=== PATIENT | female | born 1955 | race Caucasian/White ===

== ENCOUNTER → 2016-12-03 | Outpatient (CLI) | payer OTHER, BC ==
[~2016-12-03] MED LIST: CHOL100010 PO; EFF/375 PO; MULT-506 PO; POLYSOL4 OP; PRLSR20 PO; SOLI10TA2 PO
--- NOTE | 2016-12-03 16:34 | MAMMOGRAPHY REPORT ---
BILATERAL DIGITAL SCREENING MAMMOGRAM TOMOSYNTHESIS WITH CAD: 12/03/2016 CLINICAL HISTORY: Routine screening. Patient has no complaints. TECHNIQUE: Breast tomosynthesis in addition to standard 2D mammography was performed. Current study was also evaluated with a Computer Aided Detection (CAD) system. COMPARISON: Comparison is made to exams dated: 12/02/2015 mammogram, 11/29/2013 mammogram, 11/30/2014 mammogram, 11/28/2012 mammogram, 11/27/2011 mammogram, and 11/26/2010 mammogram - [facility]. BREAST COMPOSITION: The tissue of both breasts is almost entirely fatty. FINDINGS: No suspicious masses, calcifications, or areas of architectural distortion are noted in e ither breast. There has been no significant interval change compared to prior exams. Scattered bilat eral benign-appearing calcifications are not significantly changed. IMPRESSION: ACR BI-RADS CATEGORY 2: BENIGN There is no mammographic evidence of malignancy. A 1 year screening mammogram is recommended. The p atient will receive written notification of the results. Approximately 10% of breast cancers are not detected with mammography. A negative mammographic repor t should not delay biopsy if a clinically suggestive mass is present. Connie Dominguez M.D. ah/:12/03/2016 15:52:24 Bench Worker Apprentice: Narcisa VALDEZ(Marcos)(M), [facility] letter sent: Normal 1/2 BI-RADS Code: ACR BI-RADS Category 2: Benign
== END | disposition home or self-care (01) ==
LOC: C.MAMM 11:10
PROVIDERS: ATTEND Internal Medicine
DX: Z12.31 Encounter for screening mammogram for malignant neoplasm of breast (principal)

== ENCOUNTER → 2017-04-12 | Day surgery (SDC) | payer BC, OTHER ==
[2017-04-07 11:09] VITALS: BMI 47.0
[~2017-04-12] VITALS: Ht 162.6 cm; Wt 125.0 kg
[~2017-04-12] MED LIST changes: +LIDOCAINE HCL 2% 2 ML VIAL (20MG/ML) ONE; +MIDAZOLAM HCL 1 MG/ML 2ML VIAL ONE; +PROPOFOL IV EMULSION 10 MG/ML 20 ML VIAL IV ONE; +SODIUM CHLORIDE 0.9% 500ML 500 ML IV ONE
[2017-04-12 08:07] VITALS: Ht 162.6 cm; Wt 125.0 kg
[2017-04-12 08:16] VITALS: TEMP 36.8
--- NOTE | 2017-04-12 08:51 | Endo History and Physical ---
History & Physical Date of Service: Apr 12, 2017. Chief Complaint: screening, Referring Physician: Dr. Mandujano History of Present Illness screening Past Surgical History Hx Cardiac Surgery: No Hx Internal Defibrillator: No Hx Pacemaker: No Hx Abdominal Surgery: Yes (TUBAL LIGATION) Hx of Implantable Prosthesis: No Hx Post-Op Nausea and Vomiting: Yes Hx Cancer Surgery: No Hx Thoracic Surgery: No Hx Orthopedic: Yes (RIGHT SHOULDER ARTHROSCOPY, LEFT KNEE ARTHROSCOPY, RIGHT AND LEFT FOOT SURG) Hx Urinary Tract Surgery: No Family History None Social History Smoking Status: Never Smoker Hx Substance Use: No Hx Alcohol Use: No Allergies Coded Allergies: Penicillins (Verified Allergy, Mild, RASH, 04/12/17) Current Medications Reported Home Medications Medications Dose Route/Sig Max Daily Dose Days Date Category Effexor (Venlafaxine Hcl) 37.5 Mg Tab 37.5 Mg PO HS 04/07/17 Reported Vesicare (Solifenacin) 10 Mg Tab 10 Mg PO HS 04/07/17 Reported Systane (Polyethylene Glycol-Propylene) 1 Ivy Ivy 1 Drops OP QID 04/07/17 Reported Prilosec (Omeprazole) 20 Mg Capcr 20 Mg PO HS 04/07/17 Reported Vitamin D (Cholecalciferol) 1,000 Unit Tab 1 Tab PO HS 04/07/17 Reported Multivitamin (Multivitamins) Tab 1 Tab PO HS 04/07/17 Reported Vital Signs Weight (Kilograms): 125.00 Height (Feet): 5 Height (Inches): 4 Date Time Temp Pulse Resp B/P (MAP) Pulse Ox O2 Delivery O2 Flow Rate FiO2 04/12/17 08:16 36.8 78 20 140/77 (98) 94 Room Air Physical Exam General Appearance: WD/WN, no apparent distress Assessment and Plan colonoscopy today
--- NOTE | 2017-04-12 09:20 | GI REPORT ---
Procedure Date: 04/12/2017 8:54 AM Procedure: Colonoscopy Indications: Screening for colorectal malignant neoplasm Medicines: Propofol per Anesthesia Complications: No immediate complications. Estimated blood loss: Minimal. Estimated Blood Loss: Estimated blood loss: none. Procedure: Pre-Anesthesia Assessment: - Prior to the procedure, a History and Physical was performed, and patient medications, allergies and sensitivities were reviewed. The patient's tolerance of previous anesthesia was reviewed. - The risks and benefits of the procedure and the sedation options and risks were discussed with the patient. All questions were answered and informed consent was obtained. - Patient identification and proposed procedure were verified prior to the procedure by the physician and the nurse. The procedure was verified in the pre-procedure area in the procedure room. - Mental Status Examination: alert and oriented. Airway Examination: normal oropharyngeal airway and neck mobility. Respiratory Examination: clear to auscultation. CV Examination: normal. Abdominal Examination: bowel sounds present, abdomen soft and non-tender, no masses or organomegaly noted. - ASA Grade Assessment: III - A patient with severe systemic disease. After I obtained informed consent, the scope was passed under direct vision. Throughout the procedure, the patient's blood pressure, pulse, and oxygen saturations were monitored continuously. The scope was introduced through the anus and advanced to the terminal ileum. The colonoscopy was performed without difficulty. The patient tolerated the procedure well. The quality of the bowel preparation was good. Findings: The perianal and digital rectal examinations were normal. Pertinent negatives include normal sphincter tone and no palpable rectal lesions. The terminal ileum appeared normal. Three sessile polyps were found in the ascending colon. The polyps were 2 to 6 mm in size. These polyps were removed with a cold snare. Resection and retrieval were complete. Verification of patient identification for the specimen was done by the physician and nurse using the patient's name and date. Estimated blood loss was minimal. The exam was otherwise without abnormality. The retroflexed view of the distal rectum and anal verge was normal and showed no anal or rectal abnormalities. Impression: - The examined portion of the ileum was normal. - Three 2 to 6 mm polyps in the ascending colon, removed with a cold snare. Resected and retrieved. - The examination was otherwise normal. - The distal rectum and anal verge are normal on retroflexion view. Recommendation: - Await pathology results. - Repeat colonoscopy in 5 years for surveillance. - Return to referring physician as previously scheduled. - Discharge patient to home. Emperatriz Vanessa D.O. Emperatriz Vanessa, 04/12/2017 9:18:48 AM This report has been signed electronically. Note Initiated On: 04/12/2017 8:54 AM I attest to the content of the Intraoperative Record and orders documented therein, exceptions below
--- NOTE | 2017-04-12 09:26 | Anesthesiology Progress Note ---
Anesthesia Post Op Note Date & Time Apr 12, 2017 at 09:26 Vital Signs Pain Intensity: 0 Vital Signs Past 12 Hours Date Time Temp Pulse Resp B/P (MAP) Pulse Ox O2 Delivery O2 Flow Rate FiO2 04/12/17 08:16 36.8 78 20 140/77 (98) 94 Room Air Notes Mental Status: alert / awake / arousable, participated in evaluation Pt Amnestic to Procedure: Yes Nausea / Vomiting: adequately controlled Pain: adequately controlled Airway Patency, RR, SpO2: stable & adequate BP & HR: stable & adequate Hydration State: stable & adequate Anesthetic Complications: no major complications apparent
--- NOTE | 2017-04-12 09:29 | Discharge Instructions ---
Endoscopy Patient Instructions Date / Procedure(s) Performed Apr 12, 2017. Colonoscopy Allergy Information Coded Allergies: Penicillins (Verified Allergy, Mild, RASH, 04/12/17) Discharge Date / Findings Apr 12, 2017. small polyps Medication Instructions Restart Stopped Medication(s): OK to resume home medications as above Provider Instructions Activity Restrictions - No exercising or heavy lifting for 24 hours. - Do not drink alcohol the day of the procedure. - Do not drive a car or operate machinery until the day after the procedure. - Do not make any important decisions or sign important papers in 24 hours after the procedure. Following Day: - Return to full activity which may include returning to work/school. Diet Start your diet with liquids and light foods (jello, soup, juice, toast). Then eat your usual diet if not nauseated. Treatment For Common After Affects For mild abdominal pain, bloating, or excessive gas: - Rest - Eat lightly - Lie on right side Follow-Up Information Follow-up with Dr. Mandujano as scheduled Anesthesia Information What You Should Know You have had a procedure that required some medicine to reduce anxiety and discomfort. This treatment is called moderate sedation. After receiving the treatment, you may be sleepy, but you will be able to breathe on your own. The effects of the treatment may last for several hours. Follow these instructions along with Activity/Diet recommendations noted above: * Do NOT do anything where dizziness or clumsiness would be dangerous. * Rest quietly at home today, then you can be up and about tomorrow. * Have a responsible person stay with you the rest of today. * You may have had an I.V. today. If so, you may take the dressing off later today. Recommendations Call your doctor if: * Trouble breathing * Continuous vomiting for more than 24 hours * Temperature above 101 degrees * Severe abdominal pain or bloating * Pain not relieved by pain medicine ordered * There is increased drainage or redness from any incision * A large amount of rectal bleeding greater than 2-3 tablespoons. (If you had a polyp/s removed or have hemorrhoids, a small amount of blood - from the rectum is to be expected.) * You have any unanswered questions or concerns. IN THE EVENT OF A SERIOUS EMERGENCY, GO TO THE NEAREST EMERGENCY ROOM Your discharge instructions were prepared by provider Emperatriz Vanessa. Patient Instructions Signature Page Paola Aranda Patient (or Guardian) Signature/Date: I have read and understand the instructions given to me by my caregivers. Caregiver/RN/Doctor Signature/Date: The above-named patient and/or guardian has received patient instructions on this date. + Original Patient Signature Page (only) stays with chart. Please make copy for patient.
[2017-04-12 09:45] VITALS: PULSE 69
[2017-04-12 09:57] VITALS: BP 127/63; O2SAT 97
== END | disposition home or self-care (01) ==
LOC: C.GI 07:31
PROVIDERS: ATTEND Internal Medicine
DX: Z12.11 Encounter for screening for malignant neoplasm of colon (principal); D12.2 Benign neoplasm of ascending colon; Z79.899 Other long term (current) drug therapy

== ENCOUNTER → 2017-12-06 | Outpatient (CLI) | payer OTHER, BC ==
[~2017-12-06] MED LIST changes: -LIDOCAINE HCL 2% 2 ML VIAL (20MG/ML) ONE; -MIDAZOLAM HCL 1 MG/ML 2ML VIAL ONE; -PROPOFOL IV EMULSION 10 MG/ML 20 ML VIAL IV ONE; -SODIUM CHLORIDE 0.9% 500ML 500 ML IV ONE
--- NOTE | 2017-12-07 15:16 | MAMMOGRAPHY REPORT ---
BILATERAL DIGITAL SCREENING MAMMOGRAM TOMOSYNTHESIS WITH CAD: 12/06/2017 CLINICAL HISTORY: Routine screening. Patient has no complaints. TECHNIQUE: Breast tomosynthesis in addition to standard 2D mammography was performed. Current study was also evaluated with a Computer Aided Detection (CAD) system. COMPARISON: Comparison is made to exams dated: 12/03/2016 mammogram, 12/02/2015 mammogram, 11/30/2014 ma mmogram, 11/29/2013 mammogram, 11/28/2012 mammogram, and 11/27/2011 mammogram - [facility]ter. BREAST COMPOSITION: The tissue of both breasts is almost entirely fatty. FINDINGS: No suspicious mass, architectural distortion or cluster of microcalcifications is seen. IMPRESSION: ACR BI-RADS CATEGORY 1: NEGATIVE There is no mammographic evidence of malignancy. A 1 year screening mammogram is recommended. The pa tient will receive written notification of the results. Approximately 10% of breast cancers are not detected with mammography. A negative mammographic report should not delay biopsy if a clinically suggestive mass is present. Caitie ruiz/bethany:12/06/2017 15:57:21 Product Marketing Coordinator: Liliana Viramontes RT(R)(M)(BD), [facility] letter sent: Normal 1/2 BI-RADS Code: ACR BI-RADS Category 1: Negative
== END | disposition home or self-care (01) ==
LOC: C.MAMM 11:24
PROVIDERS: ATTEND Internal Medicine
DX: Z12.31 Encounter for screening mammogram for malignant neoplasm of breast (principal)

== ENCOUNTER 2024-03-14 11:00 | Observation (INO) ==
--- NOTE | 2024-02-08 11:37 | PAT Medication Instructions ---
Medication Instructions Date of Service February 08, 2024 Home Medications aspirin 81 mg capsule 81 mg PO HS calcium carbonate 600 mg-vitamin D3 5 mcg (200 unit) tablet 1 tab PO HS multivitamin 1 tab PO HS omeprazole 20 mg tablet,delayed release 20 mg PO HS peg 400-propylene glycol (PF) 0.4 %-0.3 % eye drops in a dropperette (Systane (PF)) 2 drp ophthalmic (eye) QAM bupropion HCl 150 mg tablet,12 hr sustained-release 150 mg PO BID weight loss naltrexone 50 mg tablet 25 mg PO BID weight loss oxybutynin chloride 5 mg tablet,extended release 24 hr 5 mg PO HS venlafaxine 75 mg tablet,extended release 24 hr 75 mg PO HS ASK your prescriber and surgeon aspirin 81 mg capsule 81 mg PO HS STOP taking 24 hours before surgery bupropion HCl 150 mg tablet,12 hr sustained-release 150 mg PO BID weight loss naltrexone 50 mg tablet 25 mg PO BID weight loss Take morning of surgery With a small sip of water, OTHERWISE NOTHING TO EAT OR DRINK AFTER MIDNIGHT: peg 400-propylene glycol (PF) 0.4 %-0.3 % eye drops in a dropperette (Systane (PF)) 2 drp ophthalmic (eye) QAM Take evening before surgery calcium carbonate 600 mg-vitamin D3 5 mcg (200 unit) tablet 1 tab PO HS multivitamin 1 tab PO HS omeprazole 20 mg tablet,delayed release 20 mg PO HS oxybutynin chloride 5 mg tablet,extended release 24 hr 5 mg PO HS venlafaxine 75 mg tablet,extended release 24 hr 75 mg PO HS Other Notes If you have any questions please call us at [phone] or [phone] or [phone] or [phone]
--- NOTE | 2024-02-15 10:13 | Anesthesiology Consultation ---
Date of Service February 15, 2024 Assessment & Plan (1) Encounter for pre-operative examination: - Outpatient joint assessment: Patient is currently scheduled for inpatient pathway. If re-evaluated and patient/surgeon requests outpatient pathway, patient is acceptable candidate for outpatient joint program from anesthesia standpoint pending surgeon's office assessment of pt motivation/support/completion of same day joint program preop requirements. Chart Review Chart Review: Acceptable Risk for Surgery and Patient seen in Pre Admission Testing Teaching & Discussion Pre-Anesthesia Teaching/Discussion Notes: Instructed NPO after midnight before surgery, except medications with 15 cc of water. Medication instructions provided according to the PAT guidelines. History Surgery Operation Date: 03/14/24 07:00 Proposed Procedures p Left Total Knee Arthroplasty - Gama Keating MD Height/Weight Height: 5 ft 3.5 in Weight: 116.5 kg Allergies Allergy/AdvReac Type Severity Reaction Status Date / Time Penicillins Allergy Mild RASH Verified 02/08/24 10:09 Medications Home Medications Medication Instructions Recorded Confirmed Last Taken aspirin 81 mg capsule 81 mg PO HS 12/02/22 02/08/24 12/02/22 calcium carbonate 600 mg-vitamin 1 tab PO HS 12/02/22 02/08/24 12/08/22 21:00 D3 5 mcg (200 unit) tablet multivitamin 1 tab PO HS 12/02/22 02/08/24 12/08/22 21:00 omeprazole 20 mg tablet,delayed 20 mg PO HS 12/02/22 02/08/24 12/08/22 21:00 release peg 400-propylene glycol (PF) 0.4 2 drp ophthalmic (eye) QA 12/02/22 02/08/24 12/09/22 %-0.3 % eye drops in a dropperette (Systane (PF)) bupropion HCl 150 mg tablet,12 hr 150 mg PO BID weight loss 02/08/24 02/08/24 Unknown sustained-release naltrexone 50 mg tablet 25 mg PO BID weight loss 02/08/24 02/08/24 Unknown oxybutynin chloride 5 mg 5 mg PO HS 02/08/24 02/08/24 Unknown tablet,extended release 24 hr venlafaxine 75 mg tablet,extended 75 mg PO HS 02/08/24 02/08/24 Unknown release 24 hr Past Medical History Medical History (Updated 05/15/24 @ 09:33 by Shira Foster PA-C) Anxiety h/o panic attacks pre-menopause, resolved now postmenopausal per pt Bladder incontinence chronic, improving with weight loss per pt CKD (chronic kidney disease) stage 3, GFR 30-59 ml/min GERD (gastroesophageal reflux disease) controlled, stable per pt History of hoarseness 1 nodule on vocal cord, has been checked and monitored Hx of migraines only premenopause Nausea and vomiting after administration of anesthetic agent denies needing scop patch Patient denies h/o stroke, seizures, heart attack, heart failure, DM, HTN, blood clots/DVTs or blood transfusions. Exercise / Class Metabolic Activity III < 4 Walking/Shop/Light housework (denies chest discomfort or shortness of breath with usual activities) Past Surgical History Surgical History History of arthroscopic surgery of shoulder rt. Hx of arthroscopy of knee lt. Hx of bilateral cataract extraction Hx of colonoscopy Hx of detached retina repair rt. Hx of foot surgery bilat. Hx of LASIK Hx of tubal ligation Hx of wisdom tooth extraction Past Anesthesia History No Hx of Anesthesia Complications and No Family Hx of Anesthesia Complications History of PONV No Hx of Motion Sickness and History of PONV (denies needing scop patch) Social History Smoking Status: Never smoker Do You Dip or Chew Tobacco: No Hx Alcohol Use: No Hx Substance Use: No substance use type: does not use Review of Systems Snoring, denies witnessed apneas. Patient denies chest pain, shortness of breath, dyspnea on exertion, fever, chills, cough, wheezing, or palpitations. Physical Exam Vital Signs Vitals BP 124/81 P 74 TEMP 98.5 SP02 94% on RA RESP 18 Physical Patient resting comfortably in chair in no acute distress, alert and oriented, responding appropriately throughout visit Full cervical extension range of motion without pain TMD 3.5 finger breadths Mallampati Score 3 Dentition: intact, denies chipped or loose teeth, caps/crowns, implants or bridges Lungs: normal respiratory effort. Good air movement, clear throughout to auscultation, no adventitious breath sounds Cardiac: regular rate and rhythm, no murmurs noted Carotid arteries: negative bruit bilat Lab Results Anesthesia Preop Results Results Anesthesia Widget: WBC 7.80 K/ul (4.8-10.8) 02/15/24 Hgb 13.6 g/dl (12.0-16.0) 02/15/24 Hct 41.1 % (37.0-47.0) 02/15/24 Plt 268 K/uL (130-400) 02/15/24 Na 140 mmol/L (136-145) 02/15/24 K 3.7 mmol/L (3.5-5.1) 02/15/24 Cl 109 mmol/L (98-107) H 02/15/24 CO2 23 mmol/L (21-32) 02/15/24 BUN 19 mg/dl (6-23) 02/15/24 Creat 1.20 mg/dl (0.6-1.2) 02/15/24 Glucose Level 114 mg/dl (70-99(Fasting)) H 02/15/24 PT 10.9 Seconds (9.0-12.0) 02/15/24 PTT 27 Seconds (21-31) 02/15/24 INR 1.0 (0.9-1.1) 02/15/24 Blood Type B Positive 02/15/24 Antibody Screen NEGATIVE 02/15/24 Testing Electrocardiogram Date: 02/15/24 NSR, rate 72 bpm Chest X-Ray Date: 02/15/24 No acute process.
--- NOTE | 2024-03-11 09:44 | History & Physical Report ---
Date of Service March 11, 2024 Assessment & Plan (1) Degenerative arthritis of knee, bilateral: 68-year-old female with advanced bilateral knee DJD left side more symptomatic than the right. She is failed conservative measures. She is ready to proceed with knee replacement. Does have a history of a knee arthroscopy many years ago. Plan: Orgran taken to the operative left total knee replacement the risks Mente this procedure planed the patient clued but not limited to DVT PE infection neurological and vascular bleeding palm pain limb range of motion sepsis fairly her symptoms excetra. Patient understands and desires to proceed. Informed consents obtained. 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 She does have some underlying kidney disease so if to be careful any NSAIDs. Will use aspirin for DVT prophylaxis but hold on the Toradol. He is planned to be discharged to home and do therapy at [facility] without home health. History of Present Illness Chief Complaint: . Bilateral knee pain left side greater than the right. Primary Care Provider: Magdalene Mandujano MD . Patient is a 68-year-old female who presents for surgical treatment of her left knee. She had a long history of bilateral knee pain discomfort that is gotten worse over the past 20 years. She been through extensive conservative treatment initially provided by [facility] and then [facility]. Does have a history of a knee scope done by Dr. Travis about 20 years ago. He been to extensive treatment clued multiple injections even PRP injections which helped only temporarily. She has been trying to lose weight. 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 Allergies Allergy/AdvReac Type Severity Reaction Status Date / Time Penicillins Allergy Mild RASH Verified 02/08/24 10:09 Home Medications Medication Instructions Recorded Confirmed Type aspirin 81 mg capsule 81 mg PO HS 12/02/22 02/08/24 History calcium carbonate 600 mg-vitamin 1 tab PO HS 12/02/22 02/08/24 History D3 5 mcg (200 unit) tablet multivitamin 1 tab PO HS 12/02/22 02/08/24 History omeprazole 20 mg tablet,delayed 20 mg PO HS 12/02/22 02/08/24 History release peg 400-propylene glycol (PF) 0.4 2 drp ophthalmic (eye) QAM 12/02/22 02/08/24 History %-0.3 % eye drops in a dropperette (Systane (PF)) bupropion HCl 150 mg tablet,12 hr 150 mg PO BID weight loss 02/08/24 02/08/24 History sustained-release naltrexone 50 mg tablet 25 mg PO BID weight loss 02/08/24 02/08/24 History oxybutynin chloride 5 mg 5 mg PO HS 02/08/24 02/08/24 History tablet,extended release 24 hr venlafaxine 75 mg tablet,extended 75 mg PO HS 02/08/24 02/08/24 History release 24 hr Wheeled Walker #1 ea 03/07/24 Rx Past Med/Surg History Problem List Encounter for pre-operative examination Degenerative arthritis of knee, bilateral Medical History CKD (chronic kidney disease) stage 3, GFR 30-59 ml/min Nausea and vomiting after administration of anesthetic agent denies needing scop patch History of hoarseness 1 nodule on vocal cord, has been checked and monitored Hx of migraines only premenopause Bladder incontinence chronic, improving with weight loss per pt Anxiety h/o panic attacks pre-menopause, resolved now postmenopausal per pt GERD (gastroesophageal reflux disease) controlled, stable per pt Surgical History Hx of LASIK Hx of detached retina repair rt. Hx of arthroscopy of knee lt. History of arthroscopic surgery of shoulder rt. Hx of foot surgery bilat. Hx of tubal ligation Hx of colonoscopy Hx of bilateral cataract extraction Hx of wisdom tooth extraction Social History Smoking Status: Never smoker Second Hand Exposure: Yes (hx growing up and ex- smoked); Do You Dip or Chew Tobacco: No; Hx Alcohol Use: No Hx Substance Use: No Preferred Language: Malay Communication Ability: Effective Mechanics Supervisor Required: No Beliefs That Will Affect Care: None Current Living Situation: Spouse Feels Safe at Home: Yes Assistive Devices: None Review of Systems All systems reviewed & are unremarkable except as noted in HPI & below. Physical Exam . Physical examination reveals a pleasant middle-age female but looks in pretty good health. Examination of both knees shows patient walks a bit of a waddling gait. Got significant soft tissue envelope in both sides. Range of motion of both knees is pretty symmetric with near full extension to about 120 degrees of flexion. There is no obvious instability either side. No pain with hip motion. Constitutional WD/WN, vitals as above Neck trachea midline, no thyromegaly Respiratory normal respiratory effort, lungs clear to auscultation Cardiovascular RRR, no murmur, no edema Gastrointestinal (Abdomen) normal bowel sounds, soft, nontender, no hepatosplenomegaly Results & Data Results & Data Laboratory Results . Diagnostic Findings . X-rays of the knees reveal advanced bilateral knee DJD. She got complete loss of the medial joint space in both knees. Got osteophytes in all 3 compartments. PG Care Time/CCT Total # of Minutes Spent Total Time Spent with Patient: Total time spent is greater than 50% in coordination of care (as documented) at patient's floor/unit and/or counseling patient: Coding Level of Care Code None Diagnoses Degenerative arthritis of knee, bilateral M17.0
[~2024-03-14 11:00] MED LIST changes: +BUPIVACAINE 0.5 % 5 MG/1 ML PF 10ML VIAL ONE; -CHOL100010 PO; -EFF/375 PO; -MULT-506 PO; -POLYSOL4 OP; -PRLSR20 PO; +ROPIVACAINE 0.5% 5 MG/ML 30 ML VIAL ONE; -SOLI10TA2 PO
[2024-03-14] MEDS ORDERED: fentaNYL citrate PF 100 MCG/2 ML VIAL ONE (11:32)
[2024-03-14] MEDS ORDERED: LIDOCAINE 2% 2 ML VIAL/AMP(20MG/ML) INFIL ONE (11:33)
[2024-03-14] MEDS ORDERED: MIDAZOLAM HCL 1 MG/ML 2ML VIAL ONE (11:33)
[2024-03-14] MEDS ORDERED: PROPOFOL IV EMULSION 10 MG/ML 20 ML VIAL IV ONE (11:33)
[2024-03-14] MEDS: LR 60ML/HR IV SCH (11:42)
[2024-03-14] MEDS: LR 500ML BOLUS, THEN 15ML/HR IV SCH (11:42)
[2024-03-14] MEDS: dexAMETHasone**PF** 10 MG/ML VIAL IV SCH (11:44)
[2024-03-14] MEDS: CeleBREX 200 MG CAP PO SCH (11:44)
[2024-03-14] MEDS: ACETAMINOPHEN 500 MG TAB PO SCH ×2 (11:44→20:22)
[2024-03-14] MEDS: Scopolamine 1 MG TDSY TD SCH (11:45)
[2024-03-14] MEDS: FAMOTIDINE 20 MG TAB PO SCH (11:45)
[2024-03-14] MEDS: METOCLOPRAMIDE HCL 10 MG TABLET PO SCH (11:45)
[2024-03-14] MEDS ORDERED: ePHEDrine sulfate 50 MG/ML AMP IV PRN (12:00)
[2024-03-14] MEDS ORDERED: ATROPINE SULFATE 0.1 MG/ML 10ML SYR IV PRN (12:00)
[2024-03-14] MEDS ORDERED: fentaNYL citrate PF 100 MCG/2 ML VIAL IV PRN (12:00)
--- NOTE | 2024-03-14 13:05 | History & Physical Bridge Note ---
Date of Service March 14, 2024 History & Physical Bridge Note I have examined the patient, reviewed the History & Physical and in the interval since the performance of the History & Physical I have noted the following changes of clinical significance: no changes noted
[2024-03-14] MEDS: ceFAZolin 2000MG 2,000 MG/15 ML SYR IV SCH ×2 (13:44→21:36)
[2024-03-14] MEDS: ROPIV 0.5% 246mg, Ketorolac 30mg, EPINEPHrine 0.5mg in NSS INFIL SCH (13:45)
[2024-03-14] MEDS: ORTHO JOINT ANESTHETIC ONE (13:46)
[2024-03-14] MEDS: TRANEXAMIC ACID 1,000 MG **IV Intra-op IV SCH (14:08)
--- NOTE | 2024-03-14 14:51 | Operative Report ---
PG Post Operative Report Pre & Post Diagnosis Operation Date: 03/14/24 12:30 Pre-Op Diagnosis: Left Knee Degenerative Joint Disease Post-Op Diagnosis: Left Knee Degenerative Joint Disease I identified the patient and participated in the time-out.: Yes Procedure Operation Date: 03/14/24 12:30 Actual Procedures p Left Total Knee Arthroplasty(Left) - Gama Keating MD Surgeon Gama Keating MD [employer] Developer Sanjay Horne PA-C Estimated Blood Loss 50 Findings Consistent with Post-Op Diagnosis Operative findings with advanced left knee tricompartment DJD. She had the extensive grade 4 [id number] disease in all 3 compartments most severe medially. Osteophytes in all 3 compartments. Moderate-sized joint effusion. Specimens Left knee sent for pathology. Anesthesia Type Spinal MAC Complications none Disposition Accompanied Patient To Recovery: No Indications Patient is a 68-year-old female has had a history of gradual progressive bilateral knee pain discomfort left side greater than the right over the past several years. X-rays show advanced knee arthritis. She has failed all conservative measures. She elected proceed with left total knee arthroplasty. Description of Procedure Operative implants consist of: 1 Biomet Vanguard size 67.5 left posterior stabilized femoral component. 2. Biomet size 67 tibial tray. 3. 10 mm post stabilized polyethylene insert. 4. 31 x 8 all poly patella. The patient was taken the operating, identified, placed on the operating table in the supine position. All contact areas were appropriately padded. IV an tibiotic 5 by anesthesia team. A spinal anesthetic and adductor canal block had been provided in the holding area. Salazar catheter was placed in sterile fashion. Left Gus was then placed in the left lower extremities then prepped and draped in usual sterile fashion. The left leg was elevated exsanguinated with use of an Esmarch and a turn was placed at 300 mmHg. An anterior approach to the left knee was then performed to longitudinal incision centered over the patella. Sharp dissection was carried through subcutaneous tissue down to level the extensor mechanism. A medial arthrotomy incision was made. Some subperiosteal dissection was carried out medially. The fat pad was resected from Neath patella tendon. Lateral patellofemoral ligament was released. Patella subluxated laterally and the knee was flexed. The osteophytes taken on distal femur. The ACL PCL were then released from the distal femur and the tibia subluxated anteriorly. The external treatment LYMErix then placed in the anterior face of the tibia and adjusted 14 mm medially. Proximal tibial cut was made remove about a millimeter bone from the proximal tibia. Some osteophytes taken off medially. The tibia was sized to a size 67. Attention drawn the femur. The distal femur was entered with a sharp drill. Intramedullary canal was suction. A left 5 degree valgus cutting guide was placed. The distal femoral cutting block was pinned in place. Distal femoral cut was made to take an additional 3 mm of bone off distal femur. The femur was then sized to a size 67.5. The AP cutting block was pinned parallel to the epicondylar axis which was 5 degrees of external rotation. The anterior cut, anterior chamfer, posterior cut, posterior chamfer cuts were made. The box cutting guide was placed in the just slight lateral and the box cut was made. The knee was flexed. The remnants of the medial and lateral menisci were excised. The osteophytes were taken off the posterior aspect the femur. Trial femoral component was placed. The tibial tray was pinned Kat external rotation and the drill and stem punch were used to create the defect in the proximal tibia for the tibial tray. Knee was then trialed and 10 mm insert fit most appropriately. Attention drawn the patella. The patella was cleaned of all soft tissue. Patella thickness measured about 18 mm in thickness. It was cut down to about 13. Was sized to a size 31 patella. The lug holes were drilled for 31 patella. The lateral osteophytes removed. Patella button was placed. Knee was taken through range of motion patella tracked nicely with no thumbs test. Attention drawn to placing permanent components. Nupathe all trial components were removed. Bone plug was placed in the distal femur limit blood loss. Double batch Pal[place]os G cement was mixed. A Biomet Vanguard size 67.5 left posterior stabilized femoral component, size 67 tibial tray, a 10 mm post stabilized polyethylene insert, and a 31 x 8 all poly patella then cemented in place. The knee was brought out into full extension till cement hardened. Final cement check was then performed. Pericapsular tissues were injected with a total of 100 cc of Ortho mix. The patient did receive 1 g tranexamic acid. The tourniquet was then let down for final tourniquet time 52 minutes. Hemostasis assured use electrocautery. Extensor Meclomen closed with combination 1 PDS suture #1 Vicryl suture in a [id number] fashion. Extensor Meclomen checked found to be intact and subcutaneous tissue then closed with 2 Dexon suture in buried interrupted fashion skin was closed skin gem. Leg was then cleaned and dried and a sterile dressing with Xeroform, 4 fours, sterile cast padding, Edin bandage were applied. Patient then transferred to the recovery room in stable condition. Patient tolerated procedure well and there were no complications. Sanjay Horne, my physician health education assistant, was present for the entire procedure. His assistance was essential and required for appropriate patient positioning, prepping and draping, surgical exposure, performing the technical details of the operation, placement the implants, closure of the wound, and placement of the sterile bandage. I attest to the content of the Intraoperative Record and any orders documented therein. Any exceptions are noted below.
[2024-03-14] MEDS: DROPERIDOL 5 MG/2 ML VIAL IV PRN (15:24)
--- NOTE | 2024-03-14 15:42 | XRay Report ---
XR knee LT 1 or 2V routine CLINICAL HISTORY: Postoperative evaluation. COMPARISON: Left knee radiographs June 10, 2023. FINDINGS: Alignment of the total left knee arthroplasty is anatomic. There is no periprosthetic frac ture or unexpected radiopaque foreign body. There are skin gem. IMPRESSION: Expected findings following total left knee arthroplasty. ACT 112: Negative or not required by law. Electronically signed by: Juan Louis M.D. 03/14/2024 3:41 PM
--- NOTE | 2024-03-14 16:08 | Anesthesiology Progress Note ---
Date of Service March 14, 2024 Anesthesia Post Procedure Vital Signs Vital Signs: Temp Pulse Resp BP Pulse Ox O2 Del Method 03/14/24 15:55 78 23 148/74 H 97 Room Air 03/14/24 15:40 73 22 129/69 94 Room Air 03/14/24 15:25 74 22 133/71 99 Room Air 03/14/24 15:10 36.6 C 74 18 117/65 100 Room Air 03/14/24 15:00 75 20 124/75 99 Room Air 03/14/24 14:51 36 C L 75 19 122/63 99 Room Air 03/14/24 11:26 36.5 C 71 20 164/83 H 97 Room Air Transfer of Care Handoff Completed per policy Notes Mental Status: alert / awake / arousable and participated in evaluation Patient Amnestic to Procedure: Yes Nausea / Vomiting: adequately controlled Pain: adequately controlled Airway Patency, RR, SpO2: stable & adequate BP & HR: stable & adequate Hydration State: stable & adequate Anesthetic Complications: no major complications apparent
[2024-03-14] MEDS ORDERED: oxyCODONE HCL IR 5 MG TAB (IMMEDIATE RELEASE) PO PRN (16:33)
[2024-03-14] MEDS ORDERED: NALOXONE HCL 0.4 MG/1 ML VIAL/CARP IV PRN (16:33)
[2024-03-14] MEDS ORDERED: NO NSAIDS SCH (16:33)
[2024-03-14] MEDS ORDERED: METOCLOPRAMIDE HCL INJ 5 MG/ML 2 ML VIAL IV PRN (16:33)
[2024-03-14] MEDS ORDERED: HYDROmorphone INJ 0.5 MG/0.5 ML SYR IV PRN (16:33)
[2024-03-14] MEDS ORDERED: ALUMINUM/MAGNESIUM SUSP 30 ML UDC PO PRN (16:33)
[2024-03-14] MEDS ORDERED: MAGNESIUM HYDROXIDE SUSP 30 ML UDC PO PRN (16:33)
[2024-03-14] MEDS ORDERED: bisacodyL 10 MG SUPP PR PRN (16:33)
[2024-03-14] MEDS ORDERED: ONDANSETRON INJ 2 MG/ML 2 ML VIAL IV PRN (16:33)
[2024-03-14] MEDS: Scopolamine CHECK PATCH PLACEMENT SCH (16:38)
[2024-03-14] MEDS: SODIUM CHLORIDE 0.9% 1,000 ML IV SCH (16:42)
[2024-03-14] MEDS: ASCORBIC ACID 500 MG TAB PO SCH (17:54)
[2024-03-14] MEDS: CALCIUM 600MG + VIT D 400 IU TAB PO SCH (20:18)
[2024-03-14] MEDS: PANTOprazole 40 MG TAB PO SCH (20:19)
[2024-03-14] MEDS: NALTREXONE HCL 50 MG TAB PO SCH (20:19)
[2024-03-14] MEDS: ASPIRIN 81 MG ECTAB PO SCH ×2 (20:20→20:21)
[2024-03-14] MEDS: DOCUSATE SODIUM 100 MG CAP PO SCH (20:20)
[2024-03-14] MEDS: MULTIVITAMIN TAB PO SCH (20:20)
[2024-03-14] MEDS: buPROPion SR 150 MG TABCR PO SCH (20:21)
[2024-03-14] MEDS: OXYBUTYNIN CHLORIDE XL 5 MG TABCR PO SCH (20:21)
[2024-03-14] MEDS: VENLAFAXINE HCL XR 75 MG CAPXR PO SCH (20:22)
[2024-03-14] MEDS: SENNA 8.6 MG TAB PO SCH (20:22)
[2024-03-14] MEDS: TRANEXAMIC ACID / 0.7% NACL 1,000 MG/100 ML BAG IV SCH (20:23)
[2024-03-14] MEDS ORDERED: SENNA 8.6 MG TAB PO SCH (21:00)
[2024-03-15 06:36] LABS: Hematocrit (blood only) 38.6 % (37.0-47.0); Hemoglobin 12.7 g/dl (12.0-16.0); Mean Corpuscular Hemoglobin 31.4 pg (25.0-34.0); Mean Corpuscular Hgb Conc 32.9 g/dL (32.0-36.0); Mean Corpuscular Volume 95.3 fL (80.0-100.0); Mean Platelet Volume 10.6 fL (9.4-12.4); Platelet Count 234 K/uL (130-400); RDW Coefficient of Variation 12.9 % (11.5-14.5); RDW Standard Deviation 45.1 fL (36.4-46.3); Red Blood Count 4.05 M/uL (4.20-5.40); White Blood Count 15.41 K/ul (4.8-10.8)
[2024-03-15 06:44] LABS: BUN Creatinine Ratio 14.7 (10-20); Calcium 9.4 mg/dl (8.6-10.3); Creatinine Clr Calc Pharmacy 51.7 ml/min; Est GFR (African American) 49.6 ml/min; Est GFR (Non-African American) 42.8 ml/min
[2024-03-15] MEDS: MULTIVITAMIN TAB PO SCH (09:07)
--- NOTE | 2024-03-15 11:02 | Discharge Summary ---
Date of Service March 15, 2024 Admission HPI Per Admitting Provider Chief Complaint: . Bilateral knee pain left side greater than the right. Primary Care Provider: Magdalene Mandujano MD Patient is a 68-year-old female who presents for surgical treatment of her left knee. She had a long history of bilateral knee pain discomfort that is gotten worse over the past 20 years. She been through extensive conservative treatment initially provided by [facility] and then [facility]. Does have a history of a knee scope done by Dr. Travis about 20 years ago. He been to extensive treatment clued multiple injections even PRP injections which helped only temporarily. She has been trying to lose weight. 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 (1) Degenerative arthritis of knee, bilateral: 68-year-old female with advanced bilateral knee DJD left side more symptomatic than the right. She is failed conservative measures. She is ready to proceed with knee replacement. Does have a history of a knee arthroscopy many years ago. Plan: Orgran taken to the operative left total knee replacement the risks Mente this procedure planed the patient clued but not limited to DVT PE infection neurological and vascular bleeding palm pain limb range of motion sepsis fairly her symptoms excetra. Patient understands and desires to proceed. Informed consents obtained. 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 She does have some underlying kidney disease so if to be careful any NSAIDs. Will use aspirin for DVT prophylaxis but hold on the Toradol. He is planned to be discharged to home and do therapy at [facility] without home health. Admission Exam Per Admitting Provider Physical examination reveals a pleasant middle-age female but looks in pretty good health. Examination of both knees shows patient walks a bit of a waddling gait. Got significant soft tissue envelope in both sides. Range of motion of both knees is pretty symmetric with near full extension to about 120 degrees of flexion. There is no obvious instability either side. No pain with hip motion. Constitutional WD/WN, vitals as above Neck trachea midline, no thyromegaly Respiratory normal respiratory effort, lungs clear to auscultation Cardiovascular RRR, no murmur, no edema Gastrointestinal (Abdomen) normal bowel sounds, soft, nontender, no hepatosplenomegaly Diagnostic Findings X-rays of the knees reveal advanced bilateral knee DJD. She got complete loss of the medial joint space in both knees. Got osteophytes in all 3 compartments. Principal Diagnosis Same as "Discharge Diagnosis" noted below under Discharge Instructions. Discharge Exam GENERAL: AA&Ox3, NAD. Pleasant, affect is calm. Sitting in bed and appears comfortable. RESPIRATORY: Normal respiratory effort with no signs of distress. CHEST/AXILLA: Chest movement symmetrical. No deformities noted. CARDIOVASCULAR: No edema noted. SKIN: [place], warm and dry. MS/EXTREMITY: Knee dressing & JOSE wrap c/d/i. ARABELLA hose donned to contralateral LE. + ankle dorsi/plantarflexion. NVI distally. Calf soft/NT. PT/DP intact. +S LR. Discharge Data Allergies Allergy/AdvReac Type Severity Reaction Status Date / Time Penicillins Allergy Mild RASH Verified 03/14/24 11:22 Procedures Performed Operation Date: 03/14/24 12:30 Actual Procedures p Left Total Knee Arthroplasty(Left) - Gama Keating MD Ordered Studies 03/14/24 05:00 US - OR guided needle placemen Routine Knee X-Ray 03/14/24 14:49 XR knee LT 1 or 2V routine CLINICAL HISTORY: Postoperative evaluation. COMPARISON: Left knee radiographs June 10, 2023. FINDINGS: Alignment of the total left knee arthroplasty is anatomic. There is no periprosthetic fracture or unexpected radiopaque foreign body. There are skin gem. IMPRESSION: Expected findings following total left knee arthroplasty. ACT 112: Negative or not required by law. Electronically signed by: uJan Louis M.D. 03/14/2024 3:41 PM Hospital Course (1) Degenerative arthritis of knee, bilateral: (2) Status post total left knee replacement using cement: On March 14, 2024 Paola arrived at [facility] operating room and underwent a left total knee replacement without complications. Patient had an adductor canal block and spinal anesthetic for the procedure. Postoperatively, patient was transferred to the general orthopedic floor in s table condition and eventually started onto aspirin 81 mg twice daily for DVT prophylaxis as appropriate. Patient's hospital course was uneventful. On postoperative day #1, patient's vital signs were stable and pain was well- controlled. Patient was able to participate well with physical therapy, safely performing the necessary ambulation and range of motion exercises and properly demonstrating ADL tasks. Patient was then discharged home in stable condition, with outpatient PT services to begin. Patient will follow-up with orthopedics in 2 to 3 weeks for postoperative care. Plan 68-year-old woman POD# 1 s/p left total knee replacement, doing well overall. Pain is well-controlled. Medically stable. Postop x-rays well-appearing. She is neurologically intact. Plan: 1. DVT prophylaxis w/ TEDs, SCDs, ASA 81 mg BID. 2. PT/OT as tolerated. WBAT on the L LE. Encourage heel slides, SLR, full knee extension w/ quad sets. 3. Pain control doing well with current pain regimen. 4. Dressing change POD#2 per discharge instructions. 5. Disposition - plan to D/C home once cleared by PT/OT, w/ outpatient PT at [facility] to start as scheduled. 6. F/u 2 weeks post-op w/ orthopedics (Dr. Keating's team), or as previously scheduled, for first post-op visit. Total Time Total Time Spent Total Time Spent (In Minutes): Total Time Spent with Patient: Total time spent is greater than 50% in coordination of care (as documented) at patient's floor/unit and/or counseling patient: Discharge Plan Discharge Items Patient Disposition: Home - Self-Care Reason For Visit: Left Knee Degenerative Joint Disease Discharge Diagnosis: Left Knee Replacement Activity: Per Instructions section Weightbearing: Full weightbearing Non-emergency contact: Surgeon Call non-emergency contact if: you have any medication questions Follow-up/Referrals: Magdalene Mandujano MD [Primary Care Provider] - Diet: Regular Addtl Attending Provider Instructions: ACTIVITY RECOMMENDATIONS: Physical Therapy: * You will go to physical therapy three times each week for four to six weeks after your surgery in order to regain your knee range of motion and to retrain your knee to work properly. * It is just as important to make sure you are getting your knee perfectly straight as it is to regain your knee bend. * Taking a pain pill an hour before therapy can help you have a more productive and comfortable therapy session. Home Exercise: * You were shown a series of exercises (heel props, heel slides, etc.) in the hospital. Do these exercises three to four times each day including the exercises you were shown in physical therapy. Walking: * Get up and walk several times each day. For the first four weeks, try not to stand or walk for more than one hour at a time. If you do stand or walk for more than one hour, you will not hurt anything, but your knee and leg will likely swell. * As you feel comfortable, you may change from the walker or crutches to a cane and then to independent walking. MEDICATIONS: New Medicine: * You will likely be taking one or more of these medications: 1. Oxycodone - A quick and shorter-acting pain medication. Take one to two tablets every six hours to lessen your pain. 2. Aspirin - Thins your blood to lessen the chance of forming a blood clot. * The most common side effects of pain medicine and iron are nausea and constipation. If nausea or constipation is too much of a problem or if you have any questions about your new medicines or doses, call [facility] at . We will try to help you manage these issues. "VERY IMPORTANT TO READ AND REVIEW" Pain: * The immediate post-operative period after knee replacement surgery is often quite painful. * You are given a prescription for pain medicine. You should take it, as directed, when you need it, especially before physical therapy and before going to bed. Pain that interferes with sleep is very common and can last several months. * You will likely need pain medicine for the first four to six weeks. It will not stop all of the pain. The pain will lessen and as you feel better, you may change to milder pain medicine such as Tylenol. * The most common side effects of pain medicine are nausea and constipation, so don't take more than you need. SPECIAL CARE INSTRUCTIONS: TEDs/Elastic Stockings: * The white elastic stockings help limit swelling and prevent blood clots from forming in your legs. The more you wear them, the more they work. * Wear them for six weeks after knee replacement surgery and four weeks after partial knee replacement. Incision Site Care: * Remove dressing postoperative day 2 and then shower. Keep direct shower pressure off the incision site. * After showering, cover gem with dry gauze and change daily or more frequently if the dressing is getting saturated with drainage. * Use the ARABELLA stockings to hold dressing in place. DO NOT apply tape on the skin. * May completely stop using bandage if wound is dry and no drainage * Gem are removed between 2 and 3 weeks post-op. If your follow-up appointment is made before 2 weeks, please have your appointment re- scheduled. It is too early to remove the gem. Prevention of Infection: * Take antibiotics one hour before any dental cleaning, dental work, urological procedure, gastrointestinal procedure or any invasive surgery in order to prevent your new joint from getting infected. * You may get the antibiotics from the doctor performing the procedure or you may call our office at [phone] before and we will call in a prescription to the pharmacy of your choice. Things to Watch For: * Drainage from the incision site that occurs more than one week after your surgery. * Severely increased knee/leg pain or swelling. * Increased redness at the incision site. * Fever above 102 degrees Fahrenheit. * Unusual chest pain or shortness of breath. * Unusual pain or burning with urination. Call [facility] at [phone] with any of the above problems or if you have any questions about your medicines or recovery. FOLLOW UP VISIT: Make an appointment to see your doctor for approximately two weeks after surgery for a progress check and staple removal by calling the office at [phone]. Pending Studies at Discharge: No Stand-Alone Forms: [facility], Pain - Opioid Pain Management, Smoking Cessation Medications and DC Order Prescriptions: Continued (DME) Wheeled Walker Misc See Rx Instructions .MEDSUPPLY Qty: 1 0RF Rx Instructions: As directed oxycodone 5 mg tablet 5 - 10 mg PO Q6 PRN (Reason: pain) Qty: 40 0RF Patient Comments: post op Rx Instructions: Take as needed for pain ondansetron 4 mg tablet,disintegrating 4 mg PO Q8 PRN (Reason: nausea) Qty: 20 1RF Patient Comments: post op Rx Instructions: Take as needed for nausea sennosides [Senokot] 8.6 mg tablet 8.6 mg PO BID 14 Days Qty: 28 0RF Patient Comments: post op Rx Instructions: Take two times a day to prevent/treat constipation acetaminophen [Tylenol Extra Strength] 500 mg tablet 1,000 mg PO TID 30 Days Qty: 180 0RF Patient Comments: post op Rx Instructions: Take 3 times per day to lessen pain. aspirin [[place] Low Dose Aspirin] 81 mg tablet,delayed release (DR/EC) 81 mg PO BID 45 Days Qty: 90 0RF Patient Comments: post op Rx Instructions: Take to prevent blood clots. cefadroxil 500 mg capsule 500 mg PO BID 7 Days Qty: 14 0RF Patient Comments: post op Rx Instructions: Take 1 cap twice a day to prevent infection multivitamin Tablet 1 tab PO HS calcium carbonate-vitamin D3 600 mg-5 mcg (200 unit) Tablet 1 tab PO HS Systane (PF) 0.4-0.3 % Dropperette 2 drp OPHTHALMIC (EYE) QAM omeprazole 20 mg Tablet,Delayed Release (Dr/Ec) 20 mg PO HS aspirin 81 mg Capsule 81 mg PO HS bupropion HCl 150 mg Tablet Sustained-Release 12 Hr 150 mg PO BID naltrexone 50 mg Tablet 25 mg PO BID Patient Comments: only taking once at bedtime because it makes her sleepy oxybutynin chloride 5 mg Tablet Extended Release 24hr 5 mg PO HS venlafaxine 75 mg Tablet Extended Release 24hr 75 mg PO HS Discharge Orders: Discharge Order (Routine); Ordered 03/15/24 Ordered By: Tavon Merchant/Other Patient Handouts: DVT Post Op Prevention Admission Data Admit Date/Time: 03/14/24 14:49 Attending Provider: Gama Keating Admit Provider: Gama Keating Primary Care Provider: Magdalene Mandujano Other Interventions: Discharge Summary Assessment (RN) Last Done: 03/15/24 07:35
--- NOTE | 2024-03-15 11:02 | Orthopedic Progress Note ---
Date of Service March 15, 2024 Assessment & Plan (1) Degenerative arthritis of knee, bilateral: (2) Status post total left knee replacement using cement: Plan 68-year-old woman POD# 1 s/p left total knee replacement, doing well overall. Pain is well-controlled. Medically stable. Postop x-rays well-appearing. She is neurologically intact. Plan: 1. DVT prophylaxis w/ TEDs, SCDs, ASA 81 mg BID. 2. PT/OT as tolerated. WBAT on the L LE. Encourage heel slides, SLR, full knee extension w/ quad sets. 3. Pain control doing well with current pain regimen. 4. Dressing change POD#2 per discharge instructions. 5. Disposition - plan to D/C home once cleared by PT/OT, w/ outpatient PT at [facility] to start as scheduled. 6. F/u 2 weeks post-op w/ orthopedics (Dr. Keating's team), or as previously scheduled, for first post-op visit. Admission and Anticipated Discharge Date Admission Date: March 14, 2024 Subjective Patient is POD# 1 s/p left total knee arthroplasty by Dr. Keating on 03/14/2024. Patient says her pain is well-controlled this morning. Denies CP, SOB, N/V, L LE paresthesia. She has made arrangements for outpatient PT at [facility] in [facility]. Patient says that she will be ready to go home today. Physical Exam Physical Exam: GENERAL: AA&Ox3, NAD. Pleasant, affect is calm. Sitting in bed and appears comfortable. RESPIRATORY: Normal respiratory effort with no signs of distress. CHEST/AXILLA: Chest movement symmetrical. No deformities noted. CARDIOVASCULAR: No edema noted. SKIN: [place], warm and dry. MS/EXTREMITY: Knee dressing & JOSE wrap c/d/i. ARABELLA hose donned to contralateral LE. + ankle dorsi/plantarflexion. NVI distally. Calf soft/NT. PT/DP intact. +SLR. Results & Data Vital Signs (Past 12 Hours) Vital Signs Temp Pulse Resp BP Pulse Ox O2 Del Method 03/15/24 07:40 36.4 C L 70 16 147/81 H 98 Room Air 03/15/24 02:37 36.6 C 73 18 123/79 96 Room Air Laboratory Results Laboratory Results - last 48 hr 03/15/24 05:56 WBC 15.41 H RBC 4.05 L Hgb 12.7 Hct 38.6 MCV 95.3 MCH 31.4 MCHC 32.9 RDW Std Deviation 45.1 RDW Coeff of Isaiah 12.9 Plt Count 234 MPV 10.6 Sodium 142 Potassium 4.0 Chloride 111 H Carbon Dioxide 25 Anion Gap 6 BUN 19 Creatinine 1.29 H Est Cr Clr Drug Dosing 51.7 Est GFR ( Amer) 49.6 Est GFR (Non-Af Amer) 42.8 BUN/Creatinine Ratio 14.7 Glucose 104 H Calcium 9.4 Diagnostic Findings Knee X-Ray 03/14/24 14:49 XR knee LT 1 or 2V routine CLINICAL HISTORY: Postoperative evaluation. COMPARISON: Left knee radiographs June 10, 2023. FINDINGS: Alignment of the total left knee arthroplasty is anatomic. There is no periprosthetic fracture or unexpected radiopaque foreign body. There are skin gem. IMPRESSION: Expected findings following total left knee arthroplasty. ACT 112: Negative or not required by law. Electronically signed by: Juan Louis M.D. 03/14/2024 3:41 PM
--- OUTSIDE RECORDS SUMMARY | 2024-03-15 11:48 | External Medical Summary | Summary of Care ---
Author Name Unknown Organization [facility] Address [address] [place] [address] Phone [phone] Care Team Providers Care Business Applications Developer Name Role Phone Maurice Mandujano MD Primary Care Provider + Reason for Visit * Reason Comments eRx-Medication Refill Encounter Details Date Type Department Care Team (Late st Contact Info) Description 03/06/2024 Refill General Internal Medicine [facility] [address] [facility] [place] [address] Maurice Mandujano MD [address] [place] [address] Hot flashes due to menopause Allergies Active Allergy Reactions Criticality Noted Date Comments Ampicillin rash Penicillins 12/25/2010 documented as of this encounter (statuses as of 03/08/2024) Medications Medication Sig Dispensed Refills Start Date End Date Status MULTIVITAMIN TABS OR daily 0 11/27/2003 Active VITAMIN D 1000 UNIT PO CAPS 2 capsules daily 03/18/2011 Active ASPIRIN EC 81 MG PO TBEC Take one pill daily 30 Tab 0 03/14/2012 Active Polyethyl Glycol-Propyl Glycol 0.4-0.3 % ophthalmic solution Instill 1 Drop into both eyes in the morning. Active oxyBUTYnin Chloride ER 5 MG Oral Tablet Extended Release 24 Hour (Ditropan XL)Indications:U rinary incontinence, nocturnal enuresis Take 1 Tablet by mouth in the morning. Do not cut, crush or chew. 30 Tablet 11 07/20/2023 Active Omeprazole 20 MG Oral Capsule Delayed Release (PriLOSEC) TAKE 1 CAPSULE BY MOUTH EVERY MORNING 90 Capsule 1 09/19/2023 Active buPROPion HCl ER (SR) 150 MG Oral Tablet Extended Release 12 Hour (Wellbutrin SR) Take 1 Tablet by mouth in the morning and 1 Tablet before bedtime. 60 Tablet 1 01/10/2024 Active Naltrexone HCl 50 MG Oral Tablet (Revia) Take 0.5 Tablets by mouth in the morning and 0.5 Tablets before bedtime. 30 Tablet 1 01/10/2024 Active Venlafaxine HCl ER 75 MG Oral Capsule Extended Release 24 Hour (Effexor XR)Indications:H ot flashes due to menopause TAKE 1 CAPSULE BY MOUTH ONCE DAILY. DO NOT CUT, CRUSH OR CHEW. 90 Capsule 1 03/08/2024 Active Venlafaxine HCl ER 75 MG Oral Capsule Extended Release 24 Hour (Effexor XR)Indications:H ot flashes due to menopause TAKE 1 CAPSULE BY MOUTH ONCE DAILY. DO NOT CUT, CRUSH OR CHEW. 90 Capsule 1 09/24/2023 03/08/2024 Discontinued documented as of this encounter (statuses as of 03/08/2024) Active Problems Problem Noted Date Diagnosed Date Gastroesophageal reflux disease without esophagi tis 07/15/2022 Overactive bladder 07/15/2022 Panic disorder 07/15/2022 Body mass index (BMI) of 45.0 to 49.9 in adult 1 11/12/2018 Overview: Per Obesity protocol - - Stage 3a chronic kidney disease 11/27/2013 Overview: Per CKD protocol #1 ADVANCE DIRECTIVE INFORMATION 09/21/2006 Overview: No, Advance Directive brochure given to patient 09/21/06. Carpal tunnel syndrome Menopausal and postmenopausal disorder documented as of this encounter (statuses as of 03/08/2024) Resolved Problems Problem Noted Date Diagnosed Date Resolved Date Acute bronchitis due to 2019 novel coronavirus 01/08/2022 07/15/2022 Morbid obesity due to excess calories 06/11/2020 07/15/2022 Body mass index (BMI) of 40. 0 to 44.9 in adult 07/11/2018 09/14/2019 Overview: Per Obesity protocol #1 - Body mass index (BMI) of 45. 0 to 49.9 in adult 07/05/2017 07/18/2018 Overview: Per Obesity protocol #1 Near syncope 12/14/2012 07/15/2022 Major depression, single episode 03/20/2014 documented as of this encounter (statuses as of 03/08/2024) Immunizations Name Administration Dates Next Due Pneumococcal Conjugate Vacci ne, 20-valent ([id number]) 07/15/2022 Pneumococcal Polysaccharide PPV23 (Pneumovax) 07/15/2021 Seasonal Influenza, PF, 6 M & above, IM , (FluLaval or Fluzone) 07/15/2022,06/11/2020,07/07/2019,07/01 Seasonal Influenza, Quadriva lent Hd (Fluzone Hd) 07/20/2023,07/15/2021 Seasonal Influenza, Quadriva lent, No Preserve, IM 06/11/2016 Seasonal Influenza, Split, I IV3, With Preserve, Inj 06/06/2015,08/06/2006 TD, Preservative Free 07/07/2019 TDAP, Age 7 and older, IM (Adacel) 03/08/2009 documented as of this encounter Social History Tobacco Use Types Packs/Day Years Used Date Smoking Tobacco: Never Smokeless Tobacco: Never Alcohol Use Standard Drinks/Week Comments No 0 (1 standard drink = 0.6 oz pur e alcohol) PHQ-2 Answer Date Recorded PHQ-2 Score 0 08/10/2018 Hunger Vital Sign Answer Date Recorded Worried About Running Out of Food in the Last Ye ar Never true 07/15/2021 Ran Out of Food in the Last Year Never true 07/15/2021 Sex and Gender Information Value Date Recorded Sex Assigned at Female 07/07/2019 10:38 AM EDT Gender Identity Female 07/07/2019 10:38 AM EDT Sexual Orientation Straight 07/07/2019 10 :38 AM EDT Job Start Date Occupation Industry Not on file Not on file Not on file documented as of this encounter Miscellaneous Notes * Telephone Encounter - Nory Mao [facility] - 03/08/2024 6:29 AM EDTSigned Prescriptions: Disp Refills Venlafaxine HCl ER 75 MG Oral Capsule Exte*90 Cap*1 Sig: TAKE 1 CAPSULE BY MOUTH ONCE DAILY. DO NOT CUT, CRUSH OR CHEW.Authorizing Provider: MAURICE MANDUJANO User: NORY MAO documented in this encounter Plan of Treatment Upcoming Encounters Date Type Department Care Team (Late st Contact Info) Description 04/25/2024 9:00 AM EDT Office Visit Nephrology, [facility] [address] [place] [address] [address] Shaina Hdez PA-C [address] [place] [address] [address] 05/05/2024 11:20 AM EDT Nutrition Services Nutrition & [facility] Management, [facility] [address] [facility] [place] [address] Kindra Horne [facility] [address] [facility] [address] 07/20/2024 10:00 AM EDT Office Visit General Internal Medicine [facility] [place] [place] [address] [place] [address] [address] Maurice Mandujano MD [address] [facility] [place], [place] [address] 07/20/2024 10:40 AM EDT Laboratory Laboratory [facility] [place] [address] [place] [address] [id number] Adela Prieto [address] [facility] [place] [address] Scheduled Procedures Name Priority Associated Diagnoses Date/Ti me COLONOSCOPY FLEXIBLE PROXIMAL DIAGNOSTIC Recall History of colon polyps Health Maintenance Due Date Last Done Comments Cologuard 2001 Sigmoidoscopy 2001 Zoster Vaccines (1 of 2) 2006 Fecal Occult Blood Test 10/24/2017 10/24/19 17, 11/05/2001, 10/24/2000, Additional history exists Depression Screening 06/11/2021 06/11/2020 COVID-19 Vaccine ( season) 2023 GFR 01/19/2024 07/20/2023, 07/04, 07/09/2021, Additional history exists CKD HGB USE SMARTSET 29770 07/20/202407/20, 07/20/2023, 07/15/2022, Additional history exists CKD PHOS USE SMARTSET 37799 07/20/2024 07/20/2023, 1 Albumin/Creatinine Ratio 08/13/2024 08/13/2023, 07/04 Mammogram 12/21/2024 12/22/2023, 12/02, 12/15/2021, Additional history exists Diabetes Screening 07/20/2026 07/20/2023, 1 , 07/15/2022, Additional history exists Colonoscopy 12/10/2027 12/09/2022, 04/12/2017 Colorectal Cancer Screening 12/10/2027 Lipid Panel 07/20/2028 07/20/2023, 03/2021, 07/09/2020, Additional history exists DTaP,Tdap,and Td Vaccines (3 - Td or Tdap) 07/07/2029 07/07/2019, 03/08/2009 DXA Scan 09/30/2029 09/30/2022 Hepatitis C Screening Completed 07/12/2015 Pap Smear Discontinued 09/04/2019, 0 05/2016, 03/21/2013, Additional history exists Pneumococcal Vaccine: 65+ Years Completed 07/15/2022, 07/15/2021 RETIRED - COLONOSCOPY-EVERY 5 YRS AGES 18-100 Discontinued 12/09/2022, 04/12/2017 Influenza Vaccine (FLU shot) Completed 07/20/2023, 07/15/2022, 07/15/2021, Additional history exists GARDASIL-HPV IMMUNIZATION SERIES Aged Out No longer eligible based on patient's age to complete this topic Hepatitis B Aged Out No longer eligi ble based on patient's age to complete this topic MENINGOCOCCAL (MENACTRA/MENVEO) Aged Out No longer eligible based on patient's age to complete this topic documented as of this encounter Medical Devices Implanted Type Area Set Off Press Operator Device Identifier Shelf Expiration Date Model / Serial / Lot Lens Intraoc 21.5 - [id number] - [id number] Implanted:Qty: 1 on 04/07/2022 by Gadiel Levin MD at OR [facility] Right: Eye BAUSCH [employer] LOMB 07/03/2026 [id number] / [id number] / [id number] Lens Intraoc 21.0 - [id number] - [id number] Implanted:Qty: 1 on 04/21/2022 by Gadiel Levin MD at OR [facility] Left: Eye [employer]CH [employer] LOMB 01/01/2027 [id number] / [id number] / [id number] documented as of this encounter Visit Diagnoses Diagnosis Hot flashes due to menopause documented in this encounter Care Teams Business Applications Developer Relationship Specialty Start Date End Date Maurice Mandujano MD [address] [facility] [place] [address] PCP - General Internal Medicine 12/30/12 documented as of this encounter
== END 2024-03-15 10:43 | disposition home or self-care (01) ==
LOC: ASU 11:00 → 3E 11:00